=== PATIENT | male | born 1975 | race Caucasian/White ===

== ENCOUNTER 2018-09-30 07:12 | Inpatient (IN) | payer OTHER ==
[~2018-09-30] VITALS: Ht 177.8 cm; Wt 97.5 kg
--- NOTE | ~2018-09-30 | OP ---
[address] [address] OPERATIVE REPORT Name: DONSHEELA Room: [address] IN M.R.#: [id number] Admission: 09/30/18 Attend Phys: Lilli Marcelo MD Discharge: Date of : 75 Report #: [id number] THIS REPORT FOR: //name// CC: Lilli Kingston MD REFERRING PHYSICIANS: Dr. Az Kingston and Dr. Lilli Marcelo. PREOPERATIVE DIAGNOSIS: Symptomatic cholelithiasis. POSTOPERATIVE DIAGNOSIS: Acute cholecystitis with cholelithiasis. PROCEDURE: Laparoscopic cholecystectomy with aspiration of the gallbladder. SURGEON: Paulie Uribe DO MINGLER OPERATOR: Royal Martínez DO, PGY3, resident. SECOND QUALITY COORDINATOR: Taty Gould DO, PGY1, resident. ANESTHESIA: General endotracheal. ESTIMATED BLOOD LOSS: 30 mL. COMPLICATIONS: None. DESCRIPTION OF PROCEDURE: After obtaining proper consents and discussing risks and benefits with the patient, he was taken to the operating room, laid in the supine position, administered general anesthesia. He was then prepped and draped in the usual fashion. A timeout was performed. We confirmed the appropriate patient and procedure. Preoperative antibiotics had been given. SCDs were in place. We then made a small supraumbilical skin incision with a #11 scalpel blade. This was carried down through the skin into the subcutaneous tissue using electrocautery for hemostasis. Once the fascia was encountered, it was incised along the midline, grasped and elevated with Luzmaria clamps and divided further. The peritoneum was then bluntly opened using a hemostat. A finger was placed inside the peritoneal cavity to assure there were no gay-incisional adhesions. Next, 2-0 Vicryl sutures were placed in a ewyjvu-od-hahkn fashion to secure the Chase trocar, which was then inserted. Once the Chase trocar was inserted, insufflation was begun. Once insufflation was complete, full visual inspection of the anterior abdominal organs was performed. At this point, we were unable to visualize the gallbladder at all. There appeared to be no significant gross abnormalities other than some intraperitoneal fluid, which appeared yellowish, but clear. We then placed the patient in reverse Trendelenburg position and [place] [address] OPERATIVE REPORT Name: SHEELA OCHOA Room: [address] IN [facility].#: [id number] Admission: 09/30/18 Attend Phys: Lilli Marcelo MD Discharge: Date of : 75 Report #: [id number] more 5 mm trocars were placed, one in the subxiphoid position, two in the right upper quadrant. We were then able to identify the gallbladder, which was completely surrounded by omental adhesions and some pericholecystic fluid. The gallbladder also appeared markedly distended. At this point, we elected to aspirate the gallbladder. A large aspiration needle was inserted and we aspirated approximately 60 mL of fluid from the gallbladder, at which point it was decompressed enough that I could grasp and elevate it. I then took down the adhesions of the omentum surrounding the gallbladder using both blunt dissection as well as electrocautery. Once I was able to identify Isabella's pouch, it was grasped and elevated. I then bluntly dissected the hepatoduodenal ligament down until I could visualize the cystic duct as it coursed directly into the gallbladder. The cystic duct was completely dissected free. It was clipped proximally and distally and then divided with laparoscopic scissors. I then continued the dissection; however, I was unable to identify anything, but some very small blood vessels that appeared to be going into the gallbladder. These were cauterized. I never actually identified a cystic artery going into the gallbladder. I then continued removing the gallbladder from the liver bed using blunt dissection as well as electrocautery. Once the gallbladder was completely removed, I checked the cystic duct stump. I also checked for any leak or bleeding from the liver bed or any other arterial bleeding. There was none identified. I then placed the gallbladder into an Endopouch. The area was copiously irrigated. We then stopped the insufflation. All trocars were removed. The gallbladder was removed through the umbilical port. The umbilical fascia did have to be enlarged in order to remove the gallstone. Once the gallstone was removed, the umbilical fascia was closed using the 2 previously placed 0 Vicryl sutures plus 2 additional 0 Vicryl sutures. Skin incisions were all closed using 4-0 Monocryl subcuticular stitches. The wounds were injected with 0.5% Marcaine without epinephrine. Sponge, needle and instrument counts were all correct at the end of the procedure. By: 1600 [id number] Brooke Uribe DO /saba
[~2018-09-30 07:12] MED LIST: BENTYL 20 MG TA20 M1 PO; CIPROFLOXACIN500 M1 PO; FLAGYL500 MG PO; HYDROCODONE-AP1 EAC6 PO; NOHOMEMEDICATIONS; ONDANSETRON HCL4 M2 PO; ZOFRAN ODT4 MG DISSOLVE
[2018-09-30 07:20] VITALS: BP 129/89
[2018-09-30] MEDS ORDERED: LIPITOR10 MG PO (07:22)
[2018-09-30 07:35] LABS: ABSOLUTE BASOPHILS 0.1 thou/uL (0.0-0.2); ABSOLUTE EOSINOPHILS 0.1 thou/uL (0.0-0.7); ABSOLUTE LYMPHOCYTES 1.6 thou/uL (0.8-5.3); ABSOLUTE MONOCYTES 0.6 thou/uL (0.0-1.2); ABSOLUTE NEUTROPHILS 6.3 thou/uL (1.6-8.1); BASOPHILS 0.6 %; EOSINOPHILS 1.3 %; HEMATOCRIT 45.1 % (42.0-52.0); HEMOGLOBIN 15.1 gm/dL (14.0-18.0); LYMPHOCYTES 18.7 %; MCH 30.7 pg (26.0-34.0); MCHC 33.5 g/dL (28.0-37.0); MCV 91.4 fL (80.0-100.0); MONOCYTES 6.7 %; MPV 7.1 fl. (7.2-11.1); NUCLEATED RBCS 0 /100WBC; PLATELET COUNT* 299 thou/uL (150-400); POLYS 72.7 %; RBC 4.93 mil/uL (4.50-6.00); RDW-CV 12.9 % (10.5-14.5); WBC 8.6 thou/uL (4.0-11.0)
[2018-09-30 07:40] LABS: URINE BILIRUBIN NEGATIVE (Negative); URINE BLOOD NEGATIVE (Negative); URINE CLARITY CLEAR; URINE COLOR YELLOW; URINE GLUCOSE-RANDOM NEGATIVE (Negative); URINE KETONES NEGATIVE (Negative); URINE LEUKOCYTES-REFLEX NEGATIVE (Negative); URINE NITRITE-REFLEX NEGATIVE (Negative); URINE PROTEIN NEGATIVE (Negative); URINE UROBILINOGEN 0.2 E.U./dl (0.2-1.0)
[2018-09-30 07:53] LABS: ALBUMIN 3.9 g/dL (3.4-5.0); ALKALINE PHOSPHATASE 101 U/L (46-116); ANION GAP 7 mmol/L (7-16); BUN 20 mg/dL (7-18); CHLORIDE 103 mmol/L (98-107); CO2 30 mmol/L (21-32); CREATININE 1.2 mg/dL (0.6-1.3); GLUCOSE 158 mg/dL (70-99); LIPASE 68 U/L (73-393); POTASSIUM 4.1 mmol/L (3.5-5.1); SGOT 18 U/L (15-37); SGPT 22 U/L (30-65); SODIUM 140 mmol/L (136-145); TOTAL BILIRUBIN 0.4 mg/dL (<0.1-1.0); TOTAL PROTEIN 7.4 g/dL (6.4-8.2); TROPONIN-I LEVEL <0.06 ng/mL (<0.06)
--- NOTE | 2018-09-30 13:45 | EKG ---
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 09/30/18 1344 0737 0737 Az Quiles MD, FACC /EPI
[2018-09-30 14:54] VITALS: BP 136/88
[2018-09-30 15:16] VITALS: BP 136/84
--- NOTE | 2018-09-30 15:55 | NUR ---
PATIENT CAME TO THE FLOOR FROM THE ER IN STABLE CONDITION, AMBULATED TO BED FROM THE ER CART WITH A STEADY GAIT. IV FLUIDS STARTED AND ARE RUNNING WELL IN LEFT FOREARM. ROOM ORIENTATION AND ADMISSION ASSESSMENT DONE. CALL LIGHT IS IN REACH WILL CONTINUE TO MONITOR.
--- NOTE | 2018-09-30 17:33 | NUR ---
PATIENT IS ALERT AND ORIENTED TODAY VERY PLEASANT. UP AD POLA IN ROOM VITAL SIGNS STABLE ON ROOM AIR. PAIN IS PARTIALLY CONTROLLED WITH IV PAIN MEDICATION, VOMITED ONCE, MEDICATION GIVEN WITH SOME NAUSEA RELIEF. CALL LIGHT IS IN REACH WILL CONTINUE TO MONITOR.
[2018-10-01 04:17] LABS: HEMATOCRIT 40.6 % (42.0-52.0); HEMOGLOBIN 13.9 gm/dL (14.0-18.0); MCH 31.3 pg (26.0-34.0); MCHC 34.3 g/dL (28.0-37.0); MCV 91.3 fL (80.0-100.0); MPV 7.5 fl. (7.2-11.1); NUCLEATED RBCS 0 /100WBC; PLATELET COUNT* 272 thou/uL (150-400); RBC 4.45 mil/uL (4.50-6.00); RDW-CV 12.3 % (10.5-14.5); WBC 17.3 thou/uL (4.0-11.0)
[2018-10-01 04:20] LABS: ALBUMIN 3.3 g/dL (3.4-5.0); CALCIUM 8.4 mg/dL (8.5-10.1); CREATININE 1.1 mg/dL (0.6-1.3); TOTAL BILIRUBIN 0.7 mg/dL (<0.1-1.0); TOTAL PROTEIN 6.6 g/dL (6.4-8.2)
--- NOTE | 2018-10-01 04:32 | NUR ---
PATIENT SLEPT WELL DURING THIS SHIFT. PT WITH FLUIDS INFUSING IN LT FOREARM PER DR ORDER. PT C/O RT UPPER GASTRIC PAIN AND RECEIVED FENTANYL 50MCG IV EVERY TWO HOURS. MEDICATION ORDERED PRN. PT UP AD POLA TO BATHROOM. PT REMAINS NPOAT THIS TIME. FREQUENTLY USED ITEMS AND CALL LIGHT WITHIN REACH. WILL CONTINUE TO MONITOR.
[2018-10-01 04:34] VITALS: BP 116/77
[2018-10-01 06:31] LABS: ABSOLUTE EOSINOPHILS 0.2 thou/uL (0.0-0.7); ABSOLUTE LYMPHOCYTES 1.7 thou/uL (0.8-5.3); ABSOLUTE MONOCYTES 0.9 thou/uL (0.0-1.2); ABSOLUTE NEUTROPHILS 14.5 thou/uL (1.6-8.1)
[2018-10-01 06:32] LABS: ANISOCYTOSIS 1+; PLATELET ESTIMATE ADEQUATE; POIKILOCYTOSIS 1+
[2018-10-01 08:30] VITALS: BP 125/78
[2018-10-01 12:57] VITALS: BP 125/78
--- NOTE | 2018-10-01 13:05 | NUR ---
INITIAL ASSESSMENT: Pt evaluated for d/c planning needs. Reviewed chart. Pt is alert and oriented. Pt lives in house with spouse and was independent with ADL's prior to admissino to the hospital. Pt is employed outside the home. No d/c needs indicated. Will remain available to assist as needed.
[2018-10-01 16:16] LABS: AMP/METHAMP Negative (Negative); BARBITURATES Negative (Negative); BENZODIAZEPINES Negative (Negative); COCAINE Negative (Negative); METHADONE Negative (Negative); OPIATES Negative (Negative); PCP Negative (Negative); THC Negative (Negative)
--- NOTE | 2018-10-01 16:38 | NUR ---
PATIENT IS ALERT AND ORIENTED TODAY, PLEASAT. COMPLAINS OF PAIN THAT IS SOMEWHAT CONTROLLED WITH IV PAIN MEDICATIONS. VITAL SIGNS STABLE ON ROOM AIR. PATIENT LEFT FOR SURGERY AROUND 1230, WAITING ON REPORT AND PATIENT TO ARRIVE BACK FROM PACU.
[2018-10-01 17:28] VITALS: BP 112/73
--- NOTE | 2018-10-01 18:18 | NUR ---
PATIENT CAME FROM THE OR VIA BED IN STABLE CONDITION, ON 3 LITERS OF OXYGEN WITH CAPNO. NO COMPLAINTS OF PAIN, FEELING MUCH BETTER, PER PATIENT. FLUIDS INFUSING IN LEFT FOREARM. TOLERATED CLEAR LIQUID DIET, WILL ADVANCE TOLERATED. CALL LIGHT IS IN REACH, FAMILY AT BEDSIDE, WILL CONTINUE TO MONITOR.
[2018-10-02 10:02] VITALS: BP 108/72
[2018-10-02] MEDS ORDERED: NORCO 5-325 TA1 EACH PO (10:08)
[2018-10-02 10:10] VITALS: BP 108/72
[2018-10-02 10:48] VITALS: BP 108/72
--- NOTE | 2018-10-02 10:49 | NUR ---
PATIENT IS ALERT AND ORIENTED TODAY VERY PLEASANT. UP AD POLA IN ROOM, COMPLAINS OF SOME SORENESS AROUND INCISIONS. VITAL SIGNS STABLE ON ROOM AIR. TOLERATED REGULAR DIET FOR BREAKFAST TODAY. PATIENT IS BEING DISCHARGED TO HOME. DISCHARGE INSTRUCITONS AND PRESCRIPTION GIVEN TO PATIENT. QUESTIONS ANWERED FOR PATIENT AND . LEFT VIA WHEELCHIAR TO HOME WITH .
--- NOTE | 2018-10-05 14:43 | PATH ---
[facility] [address] [place] [address] PATHOLOGY RPT PROCEDURE Name: SHEELA JONES Room: [address] IN M.R.#: [id number] Admission: 09/30/18 Date of : 75 Discharge: 10/02/18 Report #: [id number] Path Case #: [id number] [facility] Accession Number: [id number] . 01 Material submitted: . GALLBLADDER . 01 Clinical history: . Cholelithiasis, acute cholecystitis. . 02 Diagnosis: Gallbladder: - Chronic and acute ulcerative cholecystitis and cholelithiasis. . (AMBROSIO:mml; 10/04/2018) QLM/10/04/2018 . 02 Electronically signed: . Tra Diaz MD, Pathologist NPI- [id number] . 01 Gross description: . Received in formalin labeled "Sheela Jones, gallbladder" is an intact gallbladder measuring 7.9 x 3.3 x 2.5 cm. The serosa is pink-red and hemorrhagic. The specimen is opened to reveal red-brown hemorrhagic mucosa without polyps or masses. The average wall thickness is 0.1-0.3 cm. Multiple ovoid yellow-green calculi and fragments of calculi are present, measuring in aggregate 5.3 x 2.8 x 1.9 cm, and ranging from 0.3-2.5 cm in greatest dimension. Technical Support Coordinator sections of the fundus and body and the cystic duct margin are submitted in cassette A1. ([facility] [place] [place]; 10/03/2018) SYC/SYC . 02 Pathologist provided ICD-10: K80.12 . 02 CPT . 908246 Specimen Comment: A courtesy copy of this report has been sent to Specimen Comment: [phone], , . Specimen Comment: Report sent to ,DR CAMPOS / DR DENNIS Specimen Comment: A duplicate report has been generated due to demographic updates. Performed at: [address] [facility] [address] [id number] MD Kian Ortiz MD Phone: [phone] Performed at: 02 [place] [address] PATHOLOGY RPT PROCEDURE Name: SHEELA JONES Room: [address] IN M.R.#: [id number] Admission: 09/30/18 Date of : 75 Discharge: 10/02/18 Report #: [id number] Path Case #: [id number] [facility] [address], [place], [place] [id number] MD Tra Diaz MD Phone: [phone]
== END 2018-10-02 10:52 | disposition home or self-care (01) | DRG 419 ==
LOC: M.ERS 07:12 → M.3W 11:00 → M.TBA-ER 11:00 → M.3W 15:08
PROVIDERS: Emergency Medicine Emergency Medical Services; Internal Medicine; Surgery; ADMIT Internal Medicine
PROC: 0FT44ZZ Resection of Gallbladder, Percutaneous Endoscopic Approach (ICD-10-PCS; principal; 2018-09-30)
DX: K80.62 Calculus of gallbladder and bile duct with acute cholecystitis without obstruction (principal); E86.0 Dehydration; E78.5 Hyperlipidemia, unspecified; K52.9 Noninfective gastroenteritis and colitis, unspecified; K42.9 Umbilical hernia without obstruction or gangrene; D18.03 Hemangioma of intra-abdominal structures

== ENCOUNTER 2019-01-19 21:10 | Emergency (ER) | payer OTHER ==
[~2019-01-19] VITALS: Ht 172.7 cm; Wt 113.4 kg
[~2019-01-19 21:10] MED LIST changes: +LIPITOR10 MG PO; +NORCO 5-325 TA1 EACH PO
[2019-01-19 21:28] LABS: ABSOLUTE BASOPHILS 0.1 thou/uL (0.0-0.2); ABSOLUTE EOSINOPHILS 0.2 thou/uL (0.0-0.7); ABSOLUTE LYMPHOCYTES 2.5 thou/uL (0.8-5.3); ABSOLUTE MONOCYTES 0.8 thou/uL (0.0-1.2); ABSOLUTE NEUTROPHILS 5.7 thou/uL (1.6-8.1); BASOPHILS 1.2 %; EOSINOPHILS 2.6 %; HEMATOCRIT 44.4 % (42.0-52.0); HEMOGLOBIN 15.1 gm/dL (14.0-18.0); LYMPHOCYTES 26.3 %; MCV 91.2 fL (80.0-100.0); NUCLEATED RBCS 0 /100WBC; PLATELET COUNT* 305 thou/uL (150-400); POLYS 60.9 %; RBC 4.87 mil/uL (4.50-6.00); RDW-CV 12.6 % (10.5-14.5); WBC 9.4 thou/uL (4.0-11.0)
[2019-01-19] MEDS ORDERED: NOHOMEMEDICATIONS (21:31)
[2019-01-19 21:37] LABS: ANION GAP 7 mmol/L (7-16); BUN 9 mg/dL (7-18); CHLORIDE 103 mmol/L (98-107); CO2 32 mmol/L (21-32); CREATININE 1.2 mg/dL (0.6-1.3); GLUCOSE 97 mg/dL (70-99); POTASSIUM 3.7 mmol/L (3.5-5.1); SODIUM 142 mmol/L (136-145)
[2019-01-19 21:52] LABS: ALBUMIN 3.8 g/dL (3.4-5.0); ALKALINE PHOSPHATASE 103 U/L (46-116); LIPASE 68 U/L (73-393); NT-PRO BRAIN NAT PEPTIDE 16 pg/mL (<300); SGOT 13 U/L (15-37); SGPT 27 U/L (30-65); TOTAL BILIRUBIN 0.5 mg/dL (<0.1-1.0); TOTAL PROTEIN 7.4 g/dL (6.4-8.2); TROPONIN-I LEVEL <0.06 ng/mL (<0.06)
[2019-01-19 22:31] VITALS: BP 127/86
--- NOTE | 2019-01-21 11:02 | EKG ---
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 : 1975 Requested By: Chiquita Dolan Order Number: [id number] MD: Sheela Hazel Measurements Intervals Golden Rate: 79 P: 46 LA: 159 QRS: -30 QRSD: 82 T: 22 QT: 358 QTc: 411 Interpretive Statements Sinus rhythm Atrial premature complex Probable left atrial enlargement consider Inferior infarct, old Compared to ECG 09/30/2018 07:37:40 Atrial premature complex(es) now present Electronically Signed On 01-21-2019 11:01:57 CDT by Sheela Hazel [email or web address] <ELECTRONICALLY SIGNED> By: Sheela Hazel MD, [facility] 01/21/19 110 14 14 Sheela Hazel MD, FAC /EPI
== END 2019-01-19 22:33 | disposition home or self-care (01) ==
LOC: M.ERS 21:10
PROVIDERS: Emergency Medicine
DX: R00.2 Palpitations (principal); R42 Dizziness and giddiness; E78.00 Pure hypercholesterolemia, unspecified; Z90.49 Acquired absence of other specified parts of digestive tract

== ENCOUNTER → 2019-04-06 | Outpatient (CLI) | payer OTHER ==
--- NOTE | 2019-04-06 16:32 | 2DMMODE ---
[place] [address] 2 D/M-MODE ECHOCARDIOGRAM Name: SHEELA OCHOA Room: [facility]#: [id number] Admission: 04/06/19 Attend Phys: Herberth Stanton Discharge: Date of : 75 Date of Service: 04/06/19 1632 Report #: [id number] THIS REPORT FOR: //name// APPROVED REPORT Study performed: 04/06/2019 14:09:23 EXAM: Comprehensive 2D, Doppler, and color-flow Echocardiogram Patient Location: Out-Patient Status: routine BSA: 2.15 HR: 67 bpm BP: 123/89 mmHg Rhythm: NSR Other Information Study Quality: Good Indications Palpitations Lightheaded 2D Dimensions IVSd: 9.07 (7-11mm) LVOT Diam: 20.91 (18-24mm) LVDd: 43.91 mm PWd: 8.90 (7-11mm) Ascending Ao: 32.06 (22-36mm) LVDs: 26.38 (25-40mm) Aortic Root: 35.11 mm Volumes Left Atrial Volume (Systole) LA ESV Index: 18.30 mL/m2 Aortic Valve AoV Peak Rigo.: 1.01 m/s AO Peak Gr.: 4.07 mmHg LVOT Max P.01 mmHg AO Mean Gr.: 2.42 mmHg LVOT Mean P.49 mmHg LVOT Max V: 0.87 m/s AO V2 VTI: 17.49 cm LVOT Mean V: 0.56 m/s VAZQUEZ (VTI): 3.25 cm2 LVOT V1 VTI: 16.56 cm Mitral Valve E/A Ratio: 1.09 MV Decel. Time: 155.40 [place] [address] 2 D/M-MODE ECHOCARDIOGRAM Name: SHEELA OCHOA Room: [facility]#: [id number] Admission: 04/06/19 Attend Phys: Herberth Stanton Discharge: Date of : 75 Date of Service: 04/06/19 1632 Report #: [id number] MV E Max Rigo.: 0.56 m/s MV PHT: 45.06 ms MVA (PHT): 4.88 cm2 TDI E/Lateral E': 4.67 E/Medial E': 4.31 Medial E' Rigo.: 0.13 m/s Lateral E' Rigo.: 0.12 m/s Pulmonary Valve PV Peak Rigo.: 0.82 m/s PV Peak Gr.: 2.68 mmHg Tricuspid Valve RAP Estimate: 5.00 mmHg TR Peak Gr.: 14.92 mmHg RVSP: 19.00 mmHg PA Pressure: 19.00 mmHg Left Ventricle The left ventricle is normal size. There is normal LV segmental wall motion. There is normal left ventricular wall thickness. Left ventricular systolic function is normal. The left ventricular ejection fraction is within the normal range. LVEF is 55-60%. The left ventricular diastolic function is normal. Right Ventricle The right ventricle is normal size. The right ventricular systolic function is normal. Atria The left atrium size is normal. The right atrium size is normal. Aortic Valve The aortic valve is normal in structure. No aortic regurgitation is present. There is no aortic valvular stenosis. Mitral Valve The mitral valve is normal in structure. Trace mitral regurgitation. No evidence of mitral valve stenosis. Tricuspid Valve The tricuspid valve is normal in structure. Trace tricuspid regurgitation. No pulmonary hypertension. Pulmonic Valve The pulmonary valve is normal in structure[place] [address] 2 D/M-MODE ECHOCARDIOGRAM Name: DONSHEELA Room: [facility]#: [id number] Admission: 04/06/19 Attend Phys: Herberth Stanton Discharge: Date of : 75 Date of Service: 04/06/19 1632 Report #: [id number] valvular regurgitation. Great Vessels The aortic root is normal in size. IVC is not visualized. Pericardium There is no pericardial effusion. <Conclusion> Left ventricular systolic function is normal. The left ventricular ejection fraction is within the normal range. <ELECTRONICALLY SIGNED> By: Sheela Hazel MD, FACC 04/06/19 163 31 31 Sheela Hazel MD, FACC /INF
== END ==
LOC: M.CRD 13:51
DX: R00.2 Palpitations (principal); R42 Dizziness and giddiness

== ENCOUNTER → 2019-04-18 | Outpatient (CLI) | payer OTHER ==
--- NOTE | 2019-04-21 15:20 | SLEEP ---
[address] [address] SLEEP STUDY REPORT Name: SHEELA OCHOA Room: [facility]#: [id number] Admission: 04/18/19 Attend Phys: Naa Donovan RN Discharge: Date of : 75 Report #: [id number] THIS REPORT FOR: //name// CC: Az Donovan This study has been reviewed in its entirety by a board certified sleep specialist DATE OF SERVICE: 04/18/2019 HOME SLEEP STUDY REFERRING PHYSICIAN: JANET Cooper. The patient is 43 years old who weighs 120 pounds with a BMI of 17.2. The patient underwent home sleep study performed by [facility]. Total recording time was 368 minutes. During the night study, the patient had 91 obstructive apneas, 30 central apneas, no mixed apneas and 82 hypopneas. The patient's apnea-hypopnea index was 33.5 per hour. Supine index of 35.3 per hour. Nocturnal oximetry study revealed an average oxygen saturation of 93% with the lowest of 84%. 11.7 minutes were spent in oxygen saturation less than 90%. Mean heart rate was 80 beats per minute. IMPRESSION: 1. Severe sleep apnea-hypopnea syndrome at an apnea-hypopnea index of 33.5 per hour. 2. Mild nocturnal hypoxia secondary to obstructive sleep apnea. RECOMMENDATIONS: 1. The patient would benefit from treatment of sleep apnea with CPAP. This can be done as an in-lab CPAP titration study versus home auto-titration study. 2. Once patient is optimally treated, then follow up in 4-6 weeks to assess compliance with treatment and to document clinical improvement. 3. Avoid QUALITY IMPROVEMENT ANALYST depressants. 4. Cautioned regarding driving until symptoms of sleep apnea resolve with the above recommendations. <ELECTRONICALLY SIGNED> By: Celso Rodríguez MD 04/21/19 1520 0837 [id number] Rodríguez MD /nt
== END ==
LOC: M.SLEEPLAB 16:00
DX: G47.33 Obstructive sleep apnea (adult) (pediatric) (principal); G47.34 Idiopathic sleep related nonobstructive alveolar hypoventilation